=== PATIENT | female | born 1965 | race Caucasian/White ===

== ENCOUNTER 2018-10-01 22:31 | Emergency (ER) | payer OTHER ==
[~2018-10-01] VITALS: Ht 177.8 cm; Wt 79.4 kg
[2018-10-01] MEDS ORDERED: MORPHINE SULFATE 4 MG/1 ML DISP.SYRIN ONE ×2 (22:40→23:36)
[2018-10-01] MEDS ORDERED: MORPHINE SULFATE 4 MG/1 ML DISP.SYRIN IV ONE (22:45)
--- NOTE | 2018-10-01 23:10 | NUR ---
RIGOBERTOD discussing with patient at bedside the need for moderate sedation and approach to perform a closed reduction of the right hip. Risks and benefits explained to patient by ERMD, patient verbalizes understanding with no further concerns at this time
[2018-10-01] MEDS ORDERED: PROPOFOL 200 MG/20 ML BOTTLE IV ONE ×5 (23:15→23:45)
[2018-10-01] MEDS ORDERED: PROPOFOL 200 MG/20 ML BOTTLE ONE ×2 (23:19→23:37)
--- NOTE | 2018-10-01 23:20 | NUR ---
Time out for procedure of "Closed reduction of dislocated right hip prosthesis" performed.
--- NOTE | 2018-10-01 23:26 | NUR ---
1st dose Diprivan 40mg IVP given by ERMSamra in LH
--- NOTE | 2018-10-01 23:27 | NUR ---
2nd dose Diprivan 40mg IVP given by ERMSamra in LH
--- NOTE | 2018-10-01 23:28 | NUR ---
3rd dose Diprivan 40mg IVP given by GEMINI in LH
--- NOTE | 2018-10-01 23:30 | NUR ---
Luz Elena reynolds in ED - 10/02/18 at 0205 by LEONCIO 2nd attempt to manipulate Right hip followed up by xray confirmation resulted to a successful reduction
--- NOTE | 2018-10-01 23:30 | NUR ---
XRAY image of right hip captured by [employer] maintenance technician. Resulted in an unsuccessful attempt
--- NOTE | 2018-10-01 23:35 | NUR ---
4th dose Diprivan 40mg IVP given by ERMD in LH G
--- NOTE | 2018-10-01 23:36 | NUR ---
5th dose Diprivan 40mg IVP given by ERMD in LH G
--- NOTE | 2018-10-01 23:38 | NUR ---
2nd attempt to manipulate Right hip followed up by xray confirmation resulted to a successful reduction
--- NOTE | 2018-10-01 23:38 | NUR ---
End time of procedure 9183
--- NOTE | 2018-10-01 23:45 | NUR ---
Call placed to Dr. Maxi Lorenzo (pt's ortho surgeon). . Pending call back.
--- NOTE | 2018-10-01 23:47 | NUR ---
Dr. Monson speaking to Dr. Lorenzo on telephone.
--- NOTE | 2018-10-02 00:35 | NUR ---
Applied knee immobilizer to RLE and gave patient education to not bend knee and to keep RKnee underneath hip level. Patient was sent home with abductor pillows, and demonstration provided to and both parties verbalize understanding.
--- NOTE | 2018-10-02 00:40 | NUR ---
2 RN assist patient to transfer from bed to w/c, patient able to put minimal weight on RLE without any discomfort. Patient able to sit in w/c without discomfort. Wheeled patient out to the car with another nurses assistance and patient was able to get in the car, denies any acute distress or pain.
--- NOTE | 2018-10-02 00:44 | NUR ---
Patient discharged to home in stable conditon. Written and verbal after care instructions given. Patient verbalizes understanding of instructions.
[2018-10-02 04:17] VITALS: BP 145/63
== END 2018-10-02 00:44 | disposition home or self-care (01) ==
LOC: ER 22:31
DX: T84.020A Dislocation of internal right hip prosthesis, initial encounter (principal); E03.9 Hypothyroidism, unspecified
CPT/HCPCS: 27265; 73502 ×3; 99152; 99285; J2270; A4663; G0500; J3490